=== PATIENT | male | born 1975 | race Two or more races ===

== ENCOUNTER 2020-06-14 21:05 | Emergency (ER) | payer BC ==
[~2020-06-14] VITALS: Ht 172.7 cm; Wt 67.0 kg
[2020-06-14] MEDS ORDERED: IBUPROFEN 600MG TABLET PO ONE (22:30)
[2020-06-14] MEDS ORDERED: ACETAMINOPHEN 325MG TABLET PO ONE (22:30)
[2020-06-14] MEDS ORDERED: LIDOCAINE 1%/EPI 1:100,000 10 ML VIAL IJ ONE (22:30)
[2020-06-14] MEDS ORDERED: BACITRACIN ZINC OINT UDPKT TOP ONE (22:30)
[2020-06-14] MEDS ORDERED: LIDOCAINE HCL/EPINEPHRINE 1%-EPI 1:100,000 20 ML VIAL INFIL NR (22:45)
[2020-06-14] MEDS ORDERED: IBUPROFEN 400MG TABLET PO ONE (23:15)
[2020-06-15 00:47] VITALS: BP 115/69
== END 2020-06-15 00:50 | disposition home or self-care (01) ==
LOC: ER 21:05
DX: S01.81XA Laceration without foreign body of other part of head, initial encounter (principal); S39.012A Strain of muscle, fascia and tendon of lower back, initial encounter; V18.0XXA Pedal cycle driver injured in noncollision transport accident in nontraffic accident, initial encounter; Y93.89 Activity, other specified; Y92.488 Other paved roadways as the place of occurrence of the external cause
CPT/HCPCS: 12011; 99284; J3490; Z7610

== ENCOUNTER 2020-06-16 15:56 | Emergency (ER) | payer BC ==
[~2020-06-16] VITALS: Ht 165.1 cm; Wt 70.0 kg
[2020-06-16 16:32] VITALS: BP 93/63
== END 2020-06-16 20:01 | disposition home or self-care (01) ==
LOC: ER 15:56
DX: M54.6 Pain in thoracic spine (principal)
CPT/HCPCS: 72070; 99283; Z7610